=== PATIENT | female | born 1955 | race Caucasian/White ===

== ENCOUNTER → 2016-12-16 | Outpatient (CLI) | payer MEDICARE ==
[~2016-12-16] MED LIST: COLACE100 MG PO; FLEXERIL10 MG PO; INVOKANA100 M1 PO; METFORMIN1000 MG PO; NEURONTIN300 MG PO; NORCO 325 MG-101 TAB PO; OMEGA 31000 MG PO; OXYCODONE10 MG PO; PRAVACHOL80 MG PO; RAMIPRIL10 MG PO; REMERON SOLTAB45 MG PO; SERTRALINE100 MG PO; SYNTHROID0.137 MG PO; SYNTHROID0.15 MG PO; TENORMIN50 MG PO; TORSEMIDE20 MG PO; TRADJENTA PO; VITAMIN D5000 UNIT PO; VOLTAREN75 MG PO; WELLBUTRIN SR150 MG PO; [UNRECOGNIZED DRUG - OTHER]
== END | disposition home or self-care (01) ==
LOC: RAD 14:41
DX: M50.322 Other cervical disc degeneration at C5-C6 level (principal); M79.601 Pain in right arm; M25.511 Pain in right shoulder

== ENCOUNTER → 2017-02-12 | Outpatient (CLI) | payer MEDICARE ==
[2017-02-14 00:05] LABS: NORTRIPTYLINE (AVENTYL) 96 ng/mL (50-150); TOTAL (AMI + NOR) 161 ng/mL (80-200)
== END | disposition home or self-care (01) ==
LOC: LAB 17:49
PROVIDERS: Psychiatry & Neurology Neurology
DX: G62.9 Polyneuropathy, unspecified (principal)

== ENCOUNTER 2017-03-27 10:37 | Inpatient (IN) | payer MEDICARE ==
[~2017-03-27] VITALS: Ht 162.5 cm; Wt 121.6 kg
[2017-03-27 10:49] VITALS: BP 99/50
[2017-03-27 11:37] LABS: BASO % 0.5 % (0.0-1.0); EOS # 0.1 10*3/uL (0.0-0.4); EOS % 1.6 % (1.0-4.0); HEMATOCRIT 37.8 % (37.0-47.0); HEMOGLOBIN 12.4 g/dl (12.0-16.0); LYMPH # 2.1 10*3/uL (1.3-4.4); LYMPH % 33.7 % (27.0-41.0); MEAN CELL VOLUME 87.7 fl (81.0-99.0); MEAN CORPUSCULAR HGB 28.8 pg (27.0-31.0); MEAN CORPUSCULAR HGB CONC 32.8 g/dl (33.0-37.0); MEAN PLATELET VOLUME 9.7 fl (9.6-12.3); MONO # 0.5 10*3/uL (0.1-1.0); MONO % 7.6 % (3.0-9.0); NEUT # 3.6 10*3/uL (2.3-7.9); NEUT % 56.3 % (47.0-73.0); PLATELET COUNT AUTOMATED 244 10*3/uL (130-400); RED BLOOD COUNT 4.31 10*6/uL (4.10-5.10); RED CELL DISTRI WIDTH 13.2 % (0-14.5); WHITE BLOOD COUNT 6.3 10*3/uL (4.8-10.8)
[2017-03-27 11:53] LABS: ALBUMIN 3.3 gm/dl (3.1-4.5); ALKALINE PHOSPHATASE 130 U/L (45-117); BUN 13 mg/dl (7-24); CHLORIDE 104 mmol/L (98-107); CREATININE 0.85 mg/dL (0.55-1.02); MAGNESIUM 1.7 mg/dL (1.5-2.1); POTASSIUM 3.9 mmol/L (3.5-5.1); SGOT/AST 19 IU/L (3-35); SGPT/ALT 21 U/L (12-78); SODIUM 140 mmol/L (136-145); TOTAL PROTEIN 6.6 gm/dL (6.4-8.2)
--- NOTE | 2017-03-27 12:02 | NUR ---
PT UPSET IN ROOM, TELLS MYSELF RN AND VIRGINIE THAT "IF THERE ISN'T ANYTHING WRONG WITH ME I AM GOING TO KILL MYSELF" PT ALSO TELLS ME THAT SHE WANTS TO LEAVE. I INFORM HER THAT I CAN NOT LET HER LEAVE IF SHE IS FEELING SUICIDAL. PT ON CELLPHONE TRYING TO CALL HER DOCTOR SONG RENEE. 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
[2017-03-27 13:00] VITALS: BP 106/64
--- NOTE | 2017-03-27 13:00 | NUR ---
Time: 1300 A 61 year old FEMALE admitted to under services of SRINIVAS HOANG DO. Pt. arrived via WHEELCHAIR from ER. Chief complaint: VAN. SHOULDER PAIN, UABLE TO AMBULATE . CHAITANYA RODGERS .
--- NOTE | 2017-03-27 13:31 | NUR ---
PHYSICAL THERAPY PAtient respectfully declines PT this date. thank you for this referral. Virginia dobbs,PT
--- NOTE | 2017-03-27 14:09 | NUR ---
Nutritional Support Services Note: Discussing with pt and pts daughter po intake and current diet. Pt has had gastric bypass surgery one year ago and has lost 151#. Recommend NCS diet 1/2 portions with snack at 10am, 2pm and 8pm. Likes and dislikes obtained. Will follow as needed. Chanell Pathak
[2017-03-27] MEDS ORDERED: CYCLOBENZAPRINE5 M3 PO (14:56)
[2017-03-27] MEDS ORDERED: COLACE100 MG PO (15:00)
[2017-03-27] MEDS ORDERED: AMITRIPTYLINE10 MG PO (15:01)
[2017-03-27] MEDS ORDERED: CONSTULOSE10 GM/151 PO (15:05)
[2017-03-27] MEDS ORDERED: IRON325 M1 PO (15:06)
[2017-03-27] MEDS ORDERED: BIOTIN10000 MC1 PO (15:08)
--- NOTE | 2017-03-27 15:15 | NUR ---
HOME LIST OF MEDICATIONS IN CHART, Bandar MURILLO NP, NOTIFIED.
[2017-03-27 16:00] VITALS: BP 124/71
--- NOTE | 2017-03-27 17:57 | NUR ---
NORCO GIVEN FOR BACK PAIN 02/19
[2017-03-27 20:00] VITALS: BP 148/72
[2017-03-27] MEDS ORDERED: NEURONTIN300 MG PO (23:14)
[2017-03-28] VITALS: BP 139/73
[2017-03-28 05:51] LABS: BASO % 0.5 % (0.0-1.0); EOS # 0.2 10*3/uL (0.0-0.4); EOS % 2.9 % (1.0-4.0); HEMATOCRIT 38.5 % (37.0-47.0); HEMOGLOBIN 12.5 g/dl (12.0-16.0); LYMPH # 2.3 10*3/uL (1.3-4.4); MEAN CELL VOLUME 88.5 fl (81.0-99.0); MEAN CORPUSCULAR HGB 28.7 pg (27.0-31.0); MEAN CORPUSCULAR HGB CONC 32.5 g/dl (33.0-37.0); MONO # 0.5 10*3/uL (0.1-1.0); MONO % 8.9 % (3.0-9.0); NEUT # 2.5 10*3/uL (2.3-7.9); NEUT % 45.3 % (47.0-73.0); PLATELET COUNT AUTOMATED 226 10*3/uL (130-400); RED BLOOD COUNT 4.35 10*6/uL (4.10-5.10); RED CELL DISTRI WIDTH 13.1 % (0-14.5); WHITE BLOOD COUNT 5.5 10*3/uL (4.8-10.8)
[2017-03-28 05:56] LABS: ALBUMIN 3.1 gm/dl (3.1-4.5); ALKALINE PHOSPHATASE 119 U/L (45-117); BUN 15 mg/dl (7-24); CHLORIDE 105 mmol/L (98-107); CHOLESTEROL 142 mg/dL (<200); CREATININE 0.84 mg/dL (0.55-1.02); FREE T4 1.07 ng/dl (0.76-1.46); HDL CHOLESTEROL 48 mg/dl (40-60); LDL CHOLESTEROL 73 mg/dL (9-159); MAGNESIUM 1.7 mg/dL (1.5-2.1); POTASSIUM 3.6 mmol/L (3.5-5.1); SGOT/AST 16 IU/L (3-35); SGPT/ALT 20 U/L (12-78); SODIUM 142 mmol/L (136-145); TOTAL PROTEIN 6.4 gm/dL (6.4-8.2); TRIGLYCERIDES 106 mg/dl (<150); VLDL CHOLESTEROL 21 mg/dL (6-40)
[2017-03-28 07:07] LABS: VITAMIN D, 25-HYDROXY 75.6 ng/mL (30-100)
[2017-03-28 08:00] VITALS: BP 146/86
--- NOTE | 2017-03-28 10:29 | NUR ---
Patient resting quietly with no c/o discomfort. Respirations easy and regular. Vital signs stable. No overt distress. DARA SOW R
[2017-03-28 12:00] VITALS: BP 128/82
[2017-03-28 16:00] VITALS: BP 121/75
[2017-03-28 20:00] VITALS: BP 112/66
--- NOTE | 2017-03-28 21:00 | NUR ---
Patient resting quietly with no c/o discomfort. Respirations easy and regular. Vital signs stable. No overt distress. DARA SOW R
[2017-03-29] VITALS: BP 125/81
[2017-03-29 08:00] VITALS: BP 118/78
--- NOTE | 2017-03-29 08:30 | NUR ---
Patient resting quietly with no c/o discomfort. Respirations easy and regular. Vital signs stable. No overt distress. DARA SOW R
[2017-03-29 12:00] VITALS: BP 97/60
[2017-03-29 16:00] VITALS: BP 90/70
[2017-03-29 20:00] VITALS: BP 124/65
--- NOTE | 2017-03-29 20:00 | NUR ---
ASSUMED CARE OF PATIENT. ASSESSMENT COMPLETE. RESTING IN BED. CALL LIGHT IN REACH. WILL CONTINUE TO MONITOR.
--- NOTE | 2017-03-29 20:18 | NUR ---
PT C/O CONSTIPATION. MEDICATED WITH PRN DULCOLAX.
--- NOTE | 2017-03-29 23:55 | NUR ---
BELL OSEGUERA GIVEN FOR PAIN IN SHOULDERS AND BACK ON A PAIN LEVEL OF 8 ON SCALE OF 1-10. WILL CONTINUE TO MONITOR.
[2017-03-30] VITALS: BP 134/81
--- NOTE | 2017-03-30 00:22 | NUR ---
PATIENT REASSESSED FOR PAIN. PT STATED HER PAIN DROPPED TO SIX ON THE 1-10 PAIN SCALE, AND POSTIONS HERSLEF TO COMFORT NEEDED. WILL CONTINUE TO MONITOR.
--- NOTE | 2017-03-30 02:00 | NUR ---
SLEEPING. RESP EASY AND NONLABORED ON ROOM AIR. NO DISTRESS NOTED. CALL LIGHT IN REACH. WILL CONTINUE TO MONITOR.
[2017-03-30 06:22] LABS: BASO % 0.7 % (0.0-1.0); EOS # 0.2 10*3/uL (0.0-0.4); EOS % 3.3 % (1.0-4.0); HEMATOCRIT 36.4 % (37.0-47.0); LYMPH # 2.2 10*3/uL (1.3-4.4); LYMPH % 48.6 % (27.0-41.0); MEAN CELL VOLUME 87.3 fl (81.0-99.0); MEAN CORPUSCULAR HGB 28.8 pg (27.0-31.0); MEAN PLATELET VOLUME 9.8 fl (9.6-12.3); MONO # 0.4 10*3/uL (0.1-1.0); MONO % 8.7 % (3.0-9.0); NEUT # 1.8 10*3/uL (2.3-7.9); NEUT % 38.5 % (47.0-73.0); PLATELET COUNT AUTOMATED 222 10*3/uL (130-400); RED BLOOD COUNT 4.17 10*6/uL (4.10-5.10); RED CELL DISTRI WIDTH 13.2 % (0-14.5); WHITE BLOOD COUNT 4.6 10*3/uL (4.8-10.8)
--- NOTE | 2017-03-30 06:29 | NUR ---
PT GIVEN PRN NORCO FOR PAIN IN SHOULDERS AND BACK. WILL CONTINUE TO MONITOR.
[2017-03-30 06:46] LABS: CREATININE 0.84 mg/dL (0.55-1.02)
[2017-03-30 08:00] VITALS: BP 127/72
--- NOTE | 2017-03-30 09:00 | NUR ---
Global Logistics Manager in to talk to patient. Patient states lives at home with alone. There are few steps in the home. Physician: lauro jung Pharmacy: [facility] health services: none Patient's level of ADLs: MODERATE ASSIST Patient has working utilities: all working DME: [employer], bedside commode Follow-up physician's appointment after d/c: will be made by hospitalist nurse director upon discharge Does patient want to access PORTAL?: no Discharge plan discussed with patient, patient lives at home alone, she states she cooks her own meals and has been having difficulty getting around lately, discussed with her a short term long term for rehab prior to going back home, patient was receptive to this, given choice of facilities, she chose [facility], load planner will make referral to [facility]. HARMONY KERN
--- NOTE | 2017-03-30 10:46 | NUR ---
PHYSICAL THERAPY PAtient evaluated on 4, full evaluation to follow. Continue with PT as per plan of care with fall, severe arthritic pain and beto changes and acute debility. May require SNF for impaired mobility in order to return to home alone at [facility] with increased mobilty and safety. PAtient is high complexity via chart review, tests and evaluation [id number]. Thank you for this referral; Virginia Foret, PT
--- NOTE | 2017-03-30 11:12 | NUR ---
Patient requested snf placement, provided list of skilled facilities, patient chose [facility]. Contacted Lissette Kirby, faxed referral.
--- NOTE | 2017-03-30 11:17 | NUR ---
Occupational Therapy evaluation completed this date on 4 with full eval to follow. Precautions include fall risk, obese, severe pain, limited ROM and limited ambulation. Recommend OT per POC and SNF upon d/c to enable return home at independent level. Thank you for this referral Mireille Hardy OTR/L
[2017-03-30 12:00] VITALS: BP 107/76
--- NOTE | 2017-03-30 12:47 | NUR ---
PHYSICAL THERAPY Vibha seen this PM 1:1 for her therapy gait, Pt with severe arthritis. Transfer supine/sit, sitting balance supervision X 1, sit/stand and standing balance MOD A X 1. Pt Son was there and helped with Vibha gait. MOD MEDICAL CLAIMS ASSISTANT X 2, 32' X 1, with cueing for gait, turn safety and having poor balance. Pt said that with her bilateral shoulder pain she couldnot use a walker, Pt back sitting independent at bedside for her lunch, treatment time 15 min. MALISSA CASE METAL WIRE COATING OPERATOR.
--- NOTE | 2017-03-30 14:25 | NUR ---
Patient has been accepted to the [facility]. She has already met the 3 night stay requirement for Medicare and can go when medically stable for discharge.
--- NOTE | 2017-03-30 14:34 | NUR ---
PT REQUESTED AND WAS MEDICATED WITH NORCO FOR C/O BILAT SHOULDER PAIN. CALL LIGHT IN REACH. WILL MONITOR
[2017-03-30] MEDS ORDERED: Zestril,Prinivi40 MG PO (14:53)
--- NOTE | 2017-03-30 15:28 | NUR ---
Patient is being discharged to the [facility] rehab suites. Transportation scheduled via private car with her son around 5 pm. NH, nursing and family notified.
--- NOTE | 2017-03-30 15:30 | NUR ---
MEDICATION EFFECTIVE PER PT
[2017-03-30 16:00] VITALS: BP 103/65
--- NOTE | 2017-03-30 16:14 | NUR ---
Discharge instructions reviewed with patient/family. Patient receptive and verbalizes understanding. Follow-up care arranged. Written instructions given to patient/family. DARA SOW
--- NOTE | 2017-03-30 16:27 | NUR ---
[facility]
--- NOTE | 2017-03-31 07:46 | NUR ---
PHYSICAL THERAPY CO-SIGN I approve of the Phyical Therapy notes written above. GAVIN ROSS PT
== END 2017-03-30 16:14 | disposition other institution (70) | DRG 556 ==
LOC: ED 10:37 → 4E 11:22 → EDHOLD 11:22 → 4E 11:25
PROVIDERS: Emergency Medicine; Registered Nurse; ADMIT Internal Medicine
DX: M25.511 Pain in right shoulder (principal); E11.42 Type 2 diabetes mellitus with diabetic polyneuropathy; E44.0 Moderate protein-calorie malnutrition; Z68.42 Body mass index [BMI] 45.0-49.9, adult; E66.01 Morbid (severe) obesity due to excess calories; M25.512 Pain in left shoulder; R26.2 Difficulty in walking, not elsewhere classified; E03.9 Hypothyroidism, unspecified; I10 Essential (primary) hypertension; G56.02 Carpal tunnel syndrome, left upper limb; E78.5 Hyperlipidemia, unspecified; E55.9 Vitamin D deficiency, unspecified; Z91.048 Other nonmedicinal substance allergy status; Z79.84 Long term (current) use of oral hypoglycemic drugs; Z79.899 Other long term (current) drug therapy; Z90.710 Acquired absence of both cervix and uterus; Z98.51 Tubal ligation status; Z83.3 Family history of diabetes mellitus; Z82.49 Family history of ischemic heart disease and other diseases of the circulatory system; Z82.3 Family history of stroke

== ENCOUNTER → 2017-08-04 | Outpatient (CLI) | payer MEDICARE ==
[~2017-08-04] MED LIST changes: +AMITRIPTYLINE10 MG PO; +BIOTIN10000 MC1 PO; +CONSTULOSE10 GM/151 PO; +CYCLOBENZAPRINE5 M3 PO; +IRON325 M1 PO; +Zestril,Prinivi40 MG PO
[2017-08-04 11:03] LABS: BASO % 0.5 % (0.0-1.0); EOS # 0.2 10*3/uL (0.0-0.4); EOS % 4.5 % (1.0-4.0); HEMATOCRIT 39.9 % (37.0-47.0); HEMOGLOBIN 12.9 g/dl (12.0-16.0); LYMPH # 1.8 10*3/uL (1.3-4.4); LYMPH % 40.7 % (27.0-41.0); MEAN CELL VOLUME 86.4 fl (81.0-99.0); MEAN CORPUSCULAR HGB 27.9 pg (27.0-31.0); MEAN CORPUSCULAR HGB CONC 32.3 g/dl (33.0-37.0); MEAN PLATELET VOLUME 10.4 fl (9.6-12.3); MONO # 0.3 10*3/uL (0.1-1.0); MONO % 7.3 % (3.0-9.0); NEUT # 2.1 10*3/uL (2.3-7.9); NEUT % 46.8 % (47.0-73.0); PLATELET COUNT AUTOMATED 204 10*3/uL (130-400); RED BLOOD COUNT 4.62 10*6/uL (4.10-5.10); RED CELL DISTRI WIDTH 13.4 % (0-14.5); WHITE BLOOD COUNT 4.4 10*3/uL (4.8-10.8)
[2017-08-04 11:29] LABS: ALBUMIN 3.4 gm/dl (3.1-4.5); ALKALINE PHOSPHATASE 109 U/L (45-117); BILIRUBIN, DIRECT 0.1 mg/dL (0.0-0.2); BUN 16 mg/dl (7-24); CHLORIDE 105 mmol/L (98-107); CHOLESTEROL 165 mg/dL (<200); FREE T4 1.32 ng/dl (0.76-1.46); HDL CHOLESTEROL 61 mg/dl (40-60); LDL CHOLESTEROL 86 mg/dL (9-159); POTASSIUM 3.7 mmol/L (3.5-5.1); SGOT/AST 16 IU/L (3-35); SGPT/ALT 19 U/L (12-78); SODIUM 141 mmol/L (136-145); TOTAL PROTEIN 6.5 gm/dL (6.4-8.2); TRIGLYCERIDES 89 mg/dl (<150); VLDL CHOLESTEROL 18 mg/dL (6-40)
[2017-08-04 11:34] LABS: THYROID STIM HORMONE (HS) 0.695 uIU/ml (0.358-4.75)
== END | disposition home or self-care (01) ==
LOC: LAB 10:29
PROVIDERS: Internal Medicine
DX: I10 Essential (primary) hypertension (principal); E03.8 Other specified hypothyroidism; E11.9 Type 2 diabetes mellitus without complications; E55.9 Vitamin D deficiency, unspecified; E78.4 Other hyperlipidemia; D50.9 Iron deficiency anemia, unspecified

== ENCOUNTER 2019-12-26 14:08 | Emergency (ER) | payer MEDICARE ==
[~2019-12-26] VITALS: Ht 157.4 cm; Wt 176.9 kg
[2019-12-26 15:53] LABS: BILIRUBIN NEGATIVE (NEGATIVE); CLARITY SL CLOUDY (CLEAR); COLOR YELLOW (YELLOW); GLUCOSE NEGATIVE (NEGATIVE)
[2019-12-26 15:54] LABS: BLOOD NEGATIVE (NEGATIVE); KETONE NEGATIVE (NEGATIVE); LEUKO ESTERASE 2+ (NEGATIVE); NITRITE NEGATIVE (NEGATIVE); PH 6.5 (5.0-9.0); UROBILINOGEN 0.2 E.U./dl (0.2-1.0); WBC 16-20 wbc/hpf (0-5)
[2019-12-26 15:55] LABS: BACTERIA 4+
[2019-12-26] MEDS ORDERED: SEPTDS PO (16:20)
[2019-12-26] MEDS ORDERED: PYRIDIUM200 M1 PO (16:20)
== END 2019-12-26 16:25 | disposition home or self-care (01) ==
LOC: ED 14:08
PROVIDERS: Physician Assistant
DX: R30.0 Dysuria (principal); I10 Essential (primary) hypertension; E11.9 Type 2 diabetes mellitus without complications; M19.90 Unspecified osteoarthritis, unspecified site; Z88.8 Allergy status to other drugs, medicaments and biological substances; Z79.899 Other long term (current) drug therapy; Z79.84 Long term (current) use of oral hypoglycemic drugs; Z90.710 Acquired absence of both cervix and uterus

== ENCOUNTER → 2020-05-21 | Outpatient (CLI) | payer MEDICARE ==
[~2020-05-21] MED LIST changes: +PYRIDIUM200 M1 PO; +SEPTDS PO
== END | disposition home or self-care (01) ==
LOC: RAD 16:01
PROVIDERS: ATTEND Physician Assistant
DX: M47.812 Spondylosis without myelopathy or radiculopathy, cervical region (principal)

== ENCOUNTER → 2020-12-27 | Outpatient (CLI) | payer MEDICARE ==
[2020-12-27 16:02] LABS: HEMATOCRIT 40.7 % (37.0-47.0); MEAN CELL VOLUME 87.5 fl (81.0-99.0); MEAN CORPUSCULAR HGB 27.5 pg (27.0-31.0); MEAN CORPUSCULAR HGB CONC 31.4 g/dl (33.0-37.0); MEAN PLATELET VOLUME 9.8 fl (9.6-12.3); RED BLOOD COUNT 4.65 10*6/uL (4.10-5.10); RED CELL DISTRI WIDTH 13.3 % (0-14.5); WHITE BLOOD COUNT 5.5 10*3/uL (4.8-10.8)
[2020-12-27 16:42] LABS: ALBUMIN 3.6 gm/dl (3.1-4.5); ALKALINE PHOSPHATASE 102 U/L (45-117); BUN 18 mg/dl (7-24); CHLORIDE 105 mmol/L (98-107); CHOLESTEROL 218 mg/dL (<200); CREATININE 1.02 mg/dL (0.55-1.02); POTASSIUM 4.1 mmol/L (3.5-5.1); SGOT/AST 10 IU/L (3-35); SGPT/ALT 18 U/L (12-78); SODIUM 140 mmol/L (136-145); TOTAL PROTEIN 6.8 gm/dL (6.4-8.2); TRIGLYCERIDES 184 mg/dl (<150)
[2020-12-27 16:50] LABS: LDL CHOLESTEROL 124 mg/dL (9-159)
== END | disposition home or self-care (01) ==
LOC: RESCLI 00:50 → LAB 00:50 → RESCLI 09:15
PROVIDERS: ATTEND Physician Assistant
DX: M54.9 Dorsalgia, unspecified (principal); F32.9 Major depressive disorder, single episode, unspecified; G25.81 Restless legs syndrome; E03.9 Hypothyroidism, unspecified; G62.9 Polyneuropathy, unspecified; E11.9 Type 2 diabetes mellitus without complications; E78.5 Hyperlipidemia, unspecified; E66.01 Morbid (severe) obesity due to excess calories; E55.9 Vitamin D deficiency, unspecified; I10 Essential (primary) hypertension; G47.33 Obstructive sleep apnea (adult) (pediatric); Z90.710 Acquired absence of both cervix and uterus; Z79.899 Other long term (current) drug therapy

== ENCOUNTER → 2021-01-22 | Outpatient (CLI) | payer MEDICARE | END | disposition home or self-care (01) | LOC: US 01-07 14:30 | PROVIDERS: ATTEND Physician Assistant | DX: R92.8 Other abnormal and inconclusive findings on diagnostic imaging of breast (principal) ==

== ENCOUNTER → 2021-07-18 | Outpatient (CLI) | payer MEDICARE | END | disposition home or self-care (01) | LOC: RAD 16:25 | PROVIDERS: ATTEND Student in an Organized Health Care Education/Training Program | DX: M25.712 Osteophyte, left shoulder (principal); M25.711 Osteophyte, right shoulder ==

== ENCOUNTER → 2022-01-31 | Outpatient (CLI) | payer MEDICARE | END | disposition home or self-care (01) | LOC: RESCLI 01:24 | PROVIDERS: ATTEND Internal Medicine | DX: G89.29 Other chronic pain (principal); M15.9 Polyosteoarthritis, unspecified; M54.9 Dorsalgia, unspecified; E55.9 Vitamin D deficiency, unspecified; I10 Essential (primary) hypertension; E78.5 Hyperlipidemia, unspecified; F32.A Depression, unspecified; R21 Rash and other nonspecific skin eruption; E03.9 Hypothyroidism, unspecified; G62.9 Polyneuropathy, unspecified; F41.8 Other specified anxiety disorders; Z90.710 Acquired absence of both cervix and uterus; Z87.891 Personal history of nicotine dependence; Z79.899 Other long term (current) drug therapy ==

== ENCOUNTER → 2022-07-30 | Outpatient (CLI) | payer OTHER | END | disposition home or self-care (01) | LOC: RAD 12:09 | PROVIDERS: ATTEND Physician Assistant | DX: M47.816 Spondylosis without myelopathy or radiculopathy, lumbar region (principal); M47.817 Spondylosis without myelopathy or radiculopathy, lumbosacral region; M48.061 Spinal stenosis, lumbar region without neurogenic claudication ==

== ENCOUNTER 2023-02-04 17:23 | Emergency (ER) | payer OTHER ==
[~2023-02-04] VITALS: Wt 166.9 kg
[2023-02-04] MEDS ORDERED: METHOCARBAMOL500 M1 PO (20:19)
== END 2023-02-04 20:52 | disposition home or self-care (01) ==
LOC: ED 17:23
DX: S20.229A Contusion of unspecified back wall of thorax, initial encounter (principal); S30.0XXA Contusion of lower back and pelvis, initial encounter; M25.512 Pain in left shoulder; M25.511 Pain in right shoulder; G89.29 Other chronic pain; I10 Essential (primary) hypertension; E11.9 Type 2 diabetes mellitus without complications; M19.90 Unspecified osteoarthritis, unspecified site; Z88.8 Allergy status to other drugs, medicaments and biological substances; Z98.51 Tubal ligation status; Z90.710 Acquired absence of both cervix and uterus; Z98.890 Other specified postprocedural states; Z90.89 Acquired absence of other organs; W10.8XXA Fall (on) (from) other stairs and steps, initial encounter; Y93.01 Activity, walking, marching and hiking; Y92.009 Unspecified place in unspecified non-institutional (private) residence as the place of occurrence of the external cause; Y99.8 Other external cause status

== ENCOUNTER 2023-02-22 18:20 | Emergency (ER) | payer OTHER ==
[~2023-02-22] VITALS: Ht 160 cm; Wt 158.8 kg
[~2023-02-22 18:20] MED LIST changes: +METHOCARBAMOL500 M1 PO
== END 2023-02-23 02:05 | disposition home or self-care (01) ==
LOC: ED 18:20
DX: S46.911A Strain of unspecified muscle, fascia and tendon at shoulder and upper arm level, right arm, initial encounter (principal); M48.061 Spinal stenosis, lumbar region without neurogenic claudication; I10 Essential (primary) hypertension; E78.5 Hyperlipidemia, unspecified; E03.9 Hypothyroidism, unspecified; Z88.8 Allergy status to other drugs, medicaments and biological substances; M19.90 Unspecified osteoarthritis, unspecified site; F32.A Depression, unspecified; E11.9 Type 2 diabetes mellitus without complications; Z90.710 Acquired absence of both cervix and uterus; Z98.51 Tubal ligation status; Z98.890 Other specified postprocedural states; Z90.89 Acquired absence of other organs; X50.1XXA Overexertion from prolonged static or awkward postures, initial encounter; Y93.01 Activity, walking, marching and hiking; Y92.009 Unspecified place in unspecified non-institutional (private) residence as the place of occurrence of the external cause; Y99.8 Other external cause status

== ENCOUNTER → 2023-02-23 | Outpatient (CLI) | payer OTHER | END | disposition home or self-care (01) | LOC: RESCLI 02:35 | PROVIDERS: ATTEND Student in an Organized Health Care Education/Training Program | DX: E03.9 Hypothyroidism, unspecified (principal); E78.5 Hyperlipidemia, unspecified; M54.50 Low back pain, unspecified; I10 Essential (primary) hypertension; G89.29 Other chronic pain; Z82.49 Family history of ischemic heart disease and other diseases of the circulatory system; Z98.890 Other specified postprocedural states; Z87.891 Personal history of nicotine dependence; Z79.899 Other long term (current) drug therapy ==

== ENCOUNTER → 2023-10-15 | Outpatient (CLI) | payer MEDICARE ==
[2023-10-15 15:42] LABS: FREE T4 1.43 ng/dl (0.89-1.76)
== END | disposition home or self-care (01) ==
LOC: LAB 02:02 → US 14:00 → LAB 14:00
PROVIDERS: ATTEND Physician Assistant
DX: Z12.39 Encounter for other screening for malignant neoplasm of breast (principal); E03.9 Hypothyroidism, unspecified

== ENCOUNTER → 2024-02-22 | Outpatient (CLI) | payer MEDICARE | END | disposition home or self-care (01) | LOC: RESCLI 02:23 | PROVIDERS: ATTEND Internal Medicine | DX: I10 Essential (primary) hypertension (principal); F41.8 Other specified anxiety disorders; G62.9 Polyneuropathy, unspecified; E11.9 Type 2 diabetes mellitus without complications; E03.9 Hypothyroidism, unspecified; E78.5 Hyperlipidemia, unspecified; E55.9 Vitamin D deficiency, unspecified; E53.8 Deficiency of other specified B group vitamins; G25.81 Restless legs syndrome; M19.90 Unspecified osteoarthritis, unspecified site; Z90.710 Acquired absence of both cervix and uterus; Z79.899 Other long term (current) drug therapy; Z87.891 Personal history of nicotine dependence ==

== ENCOUNTER → 2024-11-23 | Outpatient (CLI) | payer MEDICARE | END | disposition home or self-care (01) | LOC: US 10:46 | PROVIDERS: ATTEND Physician Assistant | DX: R92.323 Mammographic fibroglandular density, bilateral breasts (principal); R92.313 Mammographic fatty tissue density, bilateral breasts ==